=== PATIENT | female | born 1990 | race Caucasian/White ===

== ENCOUNTER 2018-12-30 22:48 | Emergency (ER) | payer BC ==
[~2018-12-30] VITALS: Ht 165.1 cm; Wt 90.7 kg
[2018-12-30 23:10] VITALS: BP_SYST 145
[2018-12-31] MEDS ORDERED: LevALBUTEROL HCL 1.25 MG/0.5 ML *CONC.* VIAL.NEB (XOPENEX CONC.) INH ONE (02:00)
[2018-12-31] MEDS ORDERED: KETOROLAC TROMETHAMINE 30 MG VIAL IVP ONE (02:00)
[2018-12-31 02:34] LABS: BASOPHILS % (AUTO) 0.4 % (0.0-2.0); EOSINOPHILS # (AUTO) 0.3 K/uL (0.0-0.4); EOSINOPHILS % (AUTO) 2.8 % (0.0-4.0); HEMATOCRIT 38.1 % (36-48); HEMOGLOBIN 12.8 g/dL (12.0-16.0); LYMPHOCYTES # (AUTO) 4.7 K/uL (1.0-5.5); LYMPHOCYTES % (AUTO) 48.3 % (20.5-51.5); MEAN CORPUSCULAR HEMOGLOBIN 29 pg (27-31); MEAN CORPUSCULAR HGB CONC 34 % (32-36); MEAN CORPUSCULAR VOLUME 86 fL (79.0-98.0); MONOCYTES # (AUTO) 0.6 K/uL (0.0-1.0); MONOCYTES % (AUTO) 5.9 % (1.7-9.3); NEUTROPHILS # (AUTO) 4.2 K/uL (1.8-7.7); NEUTROPHILS % (AUTO) 42.6 % (40.0-70.0); PLATELET COUNT (AUTO) 385 K/uL (130-430); RED BLOOD CELL COUNT(AUTO) 4.43 MIL/uL (4.2-6.2); RED CELL DISTRIBUTION WIDTH 13.2 % (9.0-15.0); WHITE BLOOD COUNT (AUTO) 9.8 K/uL (4.8-10.8)
[2018-12-31 02:45] LABS: CALCIUM 8.5 mg/dL (8.4-11.0); CREATININE 0.69 mg/dL (0.55-1.30); POTASSIUM 3.4 mmol/L (3.5-5.1)
[2018-12-31 02:49] LABS: ALBUMIN 3.6 g/dL (3.4-4.8); TOTAL BILIRUBIN 0.3 mg/dL (0.0-1.0)
[2018-12-31 04:19] VITALS: BP_SYST 138
== END 2018-12-31 04:19 | disposition home or self-care (01) ==
LOC: SED 22:48
DX: R07.89 Other chest pain (principal); Z90.49 Acquired absence of other specified parts of digestive tract
CPT/HCPCS: 36415; 71046; 80053; 83880; 84484; 85025; 93005; 94640; 96372; 99284; J1885; J7612

== ENCOUNTER 2020-01-17 14:00 | Emergency (ER) | payer BC ==
[~2020-01-17] VITALS: Ht 165.1 cm; Wt 95.3 kg
[2020-01-17 14:06] VITALS: BP_SYST 127
[2020-01-17 14:12] VITALS: BP_SYST 127
--- NOTE | 2020-01-17 14:50 | NUR ---
Pt brought by self, A&Ox4 , pt presents to ER with skin rash on L hand starting 2 months ago and getting worse, skin pink and warm,cap refill <3, VSS, afebrile.
--- NOTE | 2020-01-17 14:56 | NUR ---
DR HERNANDEZ EXAMINING PT IN TRIAGE ROOM.
--- NOTE | 2020-01-17 15:07 | NUR ---
Patient given written and verbal discharge instructions and verbalizes understanding. ER MD discussed with patient the results and treatment provided. Patient in stable condition. ID arm band removed. Rx of NONE given. Patient educated on pain management and to follow up with PMD. Pain Scale 0/10. Opportunity for questions provided and answered. Medication side effect fact sheet provided.
== END 2020-01-17 14:56 | disposition home or self-care (01) ==
LOC: SED 14:00
DX: R21 Rash and other nonspecific skin eruption (principal); Z90.49 Acquired absence of other specified parts of digestive tract
CPT/HCPCS: 99281